=== PATIENT | female | born 1960 | race Caucasian/White ===

== ENCOUNTER 2021-05-11 09:26 | Outpatient (RCR) | payer OTHER, SELFPAY ==
[2021-05-11 10:08] VITALS: BP 135/65; PULSE 85; RESP 16; TEMP 36.6; BMI 38.0
--- NOTE | 2021-05-11 14:39 | HP.PCM_ITS ---
History of Present Illness Date of Service: 05/11/21 Chief Complaint: nonhealing wound left breast History of Wound: Jaja is a 60 yo female that woke up with a wound to her left breast in November 2020 that she feels was a result from a cat scratch and has healed and broke open several times over the last several months but recently opened and drained purulent drainage in April 2021 and was treated with Augmentin and she was referred to the wound center for treatment. The wound is currently not open but has started to swell like it has in the past when it has broke open. She has been using triple antibiotic ointment to the wound daily. [facility] Home Medications Lactobacillus acidophilus [Acidophilus] 10 mg PO DAILY 05/11/21 [History Last Taken Unknown] albuterol sulfate [Ventolin HFA] 2 INHALATION PRN 05/11/21 [History Last Taken Unknown] amlodipine 5 mg PO DAILY 05/11/21 [History Last Taken Unknown] atorvastatin 40 mg PO QHS 05/11/21 [History Last Taken Unknown] budesonide-formoterol [Symbicort] 2 puff INHALATION BID 05/11/21 [History Last Taken Unknown] cholecalciferol (vitamin D3) [Vitamin D3] 125 mcg PO DAILY 05/11/21 [History Last Taken Unknown] citalopram 20 mg BID 05/11/21 [History Last Taken Unknown] cyclobenzaprine 10 mg PO TID PRN 05/11/21 [History Last Taken Unknown] diclofenac sodium 75 mg PO BID 05/11/21 [History Last Taken Unknown] ferrous sulfate 325 mg PO BID 05/11/21 [History Last Taken Unknown] hydrochlorothiazide 25 mg PO DAILY 05/11/21 [History Last Taken Unknown] ipratropium-albuterol 3 ml INHALATION Q4H PRN MDD 2 05/11/21 [History Last Taken Unknown] lisinopril 10 mg PO DAILY 05/11/21 [History Last Taken Unknown] metformin 1,000 mg PO BID 05/11/21 [History Last Taken Unknown] omeprazole 20 mg PO DAILY 05/11/21 [History Last Taken Unknown] pregabalin 50 mg PO DAILY 05/11/21 [History Last Taken Unknown] pregabalin 50 mg PO QHS 05/11/21 [History Last Taken Unknown] vitamin E 400 unit PO DAILY 05/11/21 [History Last Taken Unknown] Allergy/AdvReac Type Severity Reaction Status Date / Time methylprednisolone Allergy Other Verified 05/11/21 12:31 tramadol [From Ultram] Allergy Itching Verified 05/11/21 12:31 gabapentin AdvReac Other Verified 05/11/21 12:30 Social History Smoking Status: Current every day smoker ROS Constitutional Constitutional: Denies chills, fatigue, fever(s) or headache(s) Eyes Eyes: Denies blurry vision or loss of vision Cardiovascular Cardiovascular: Denies chest pain, dyspnea or palpitations Respiratory/Chest Respiratory/Chest: Denies cough or wheezing Gastrointestinal Gastrointestinal: Denies abdominal pain, diarrhea, nausea or vomiting Musculoskeletal Musculoskeletal: Reports arthralgias Integumentary Integumentary: Reports erythema and wounds Neurologic Neurologic: Denies dizziness or headache(s) Psychiatric Psychiatric: Denies anxiety or depression Vital Signs Vital Signs Vital Signs: 05/11/21 10:08 Temperature 97.8 F Temperature Source Temporal Pulse Rate 85 Respiratory Rate 16 Blood Pressure 135/65 H Blood Pressure Mean 88 Blood Pressure Source Monitor Blood Pressure Position Sitting Blood Pressure Location Right Arm Oxygen Delivery Method Room Air Weight Weight: 107.048 kg Body Mass Index (BMI) 38.0 Physical Exam Const alert, oriented x3 and no apparent distress General Appearance: cooperative and comfortable HEENT normocephalic and head/scalp atraumatic Head and Scalp: normal to inspection and normocephalic Mouth: oral and palatal mucosa normal Neck no lymphadenopathy Chest Chest: scars Breast/Axilla Palpation: no axillary lymphadenopathy Nipple/Areola: nipples/areola normal Resp normal respiratory effort Effort and Inspection: able to speak in complete sentences Cardio regular rate and regular rhythm GI Inspection: central obesity Extremity no clubbing, cyanosis or edema Skin General Skin Exam: erythema and scars Wounds: wounds noted Wound Narrative: left medial breast as in clinical panel - no open wound or palpable abscess or induration or fluctuance Psych mental status grossly normal, thought process normal and cooperative Debridement Note Debridement Note Wound debrided: left medial breast Laterality: Left No debridement was completed: No debridement was completed today (no open wound/ulcer) Post-Debridement Measurements and Additional Note: Post-Debridement Measurements/Treatment WC - Nurse 1 - General Ulcer Assessment Start: 05/11/21 10:07 Freq: Status: Active Protocol: [email or web address] Activity Type Activity Date Activity User E-Sign Co-Sign Detail Recorded Client Recorded Date Recorded By Document 05/11/21 10:08 [id number] 05/11/21 10:14 05/11/21 10:08 WC - Today's Visit Information Type of service Initial Visit Arrival Mode Ambulatory Transfer Assistance None Accompanied by fiance Patient Identification Verified (Name & Yes ) Patient Requires Transmission-Based No Precautions Safety Precautions NA Height and Weight Height 5 ft 6 in Weight 107.048 kg Weight in Pounds 236.0 lbs Weight Measurement Method Stated by Patient Body Mass Index (BMI) 38.0 BMI Classification Obese BSA - Danielle 2.15 Vital Signs Temperature (97.8 F-99.1 F) 97.8 F Temperature Source Temporal Pulse Rate (60-100) 85 Pulse Location Monitor Respiratory Rate (12-18) 16 Respiratory rate source Observation Oxygen Delivery Method Room Air Blood Pressure (90/60-120/80) 135/65 H Blood Pressure Mean 88 Source Monitor Position Sitting Blood Pressure Location Right Arm Pain Scale: 0-10 Numeric Is Patient Pain Free? Yes Communication Assessment Preferred language Tamazight Dynamotor Repairer Required No Able to Read No Able to Write No Communication Tools None Caregiver Communication Skills No Impairment Impairment Right Hearing Abillity Normal Left Hearing Abillity Normal Visual Assistive Devices Glasses Teaching Assessment Preferences Verbal,Written, Audio/Visual, Demonstration Barriers to Learning None Readiness To Learn Excellent Willingness to Engage in Self Management High Activies Readiness to Engage in Self Management High Activities Anxiety Level Calm Cooperation Cooperative Perception Coherent Interest in Health Problem Asks Questions Education Importance Acknowledges Need Smoking Status Current every day smoker Is Patient Diabetic Yes Functional Assessment Recent Decline in Ability to Perform Denies Any Declines Assistive Device With Patient No Culture/Scientology/Welder/Fitter Cultural/Scientology Needs that may affect No Treatment Plan Would you allow our hospital daily release and dupe printer to No meet you for the purpose of spiritual/ emotional support? Welder/Fitter to contact place of [facility] No - Nurse 1 - General Ulcer Measurement Start: 05/11/21 10:07 Freq: Status: Active Protocol: Activity Type Activity Date Activity User E-Sign Co-Sign Detail Recorded Client Recorded Date Recorded By Document 05/11/21 10:08 [id number] 05/11/21 10:14 05/11/21 10:08 Wound Center Nurse 1 Lower Limb Edema Present No WC - Nurse 2 - General Ulcer CM Notes Start: 05/11/21 10:07 Freq: Status: Active Protocol: Activity Type Activity Date Activity User E-Sign Co-Sign Detail Recorded Client Recorded Date Recorded By Document 05/11/21 10:23 MW [id number] 05/11/21 10:31 MW 05/11/21 10:23 Wound Center Nurse 2 #1 left breast abscess -Time 10:30 -Correct Patient Yes -Correct Side, Site, Position Yes -Correct Procedure Yes -Procedure Performed No -Post Debridement (cm) - Length 0.1 -Post Debridement (cm) - Width 0.1 -Post Debridement (cm) - Depth 0.1 -Total Square (Post) (cm) 0.01 -Tunneling No -Undermining/Tunneling No -Circular Undermining No -Wound/Ulcer Outcome Not Healed Pain Scale: 0-10 Numeric Is Patient Pain Free? Yes WC - Nurse 3 - General Ulcer D/C NN Start: 05/11/21 10:07 Freq: Status: Active Protocol: Activity Type Activity Date Activity User E-Sign Co-Sign Detail Recorded Client Recorded Date Recorded By Document 05/11/21 10:33 MW [id number] 05/11/21 10:41 MW 05/11/21 10:33 Wound Care Nurse 3 #1 left breast abscess -Ulcer Cleansing Not Cleansed -Foul Odor after Cleansing No -Negative Pressure Wound Therapy N/A -Other Dressing silver sulfadine 1% cream -Primary Dressing Covered/Secured with Dry Gauze, Secured with Tape Pain Scale: 0-10 Numeric Is Patient Pain Free? Yes Teaching: Wound Center Dressing Your Wound -Person Taught Patient,Family -Teaching Method Discussion -Response to teaching Verbalize understanding WC - Visit Discharge Discharge Condition Stable Ambulatory Status Ambulatory Transportation Private Auto Accompanied by renzo Medication Reconcilliation completed & No provided to patient/care provider Clinical Summary of Care Provided Yes Assessment/Plan Assessment/Plan (1) Diabetes: CODE(S): E11.9 - Type 2 diabetes mellitus without complications QUALIFIERS: Diabetes mellitus complication detail: with other skin ulcer Diabetes mellitus complication status: with skin complications Diabetes mellitus machine long goods helper insulin use: without care home use Diabetes mellitus type: type 2 Qualified Code(s): E11.622 - Type 2 diabetes mellitus with other skin ulcer (2) Cat scratch: CODE(S): W55.03XA - Scratched by cat, initial encounter (3) Nonhealing nonsurgical wound: CODE(S): T14.8XXA - Other injury of unspecified body region, initial encounter (4) Open wound of left female breast: CODE(S): S21.002A - Unspecified open wound of left breast, initial encounter QUALIFIERS: Encounter type: subsequent encounter Qualified Code(s): S21.002D - Unspecified open wound of left breast, subsequent encounter PLAN: Jaja was seen and evaluated today at the wound center for a nonhealing wound of her left breast. There currently is no drainage but it waxes and wanes per the patient. US was ordered to evaluate for any underlying abscess or fistula tract. Advised her to use silvadene and gauze to the area once daily and to call if it does start draining and would have her come in for wound culture. She agrees with above plan. Labs also ordered to evaluate her for diabetes and her nutrition. She will call if increased pain, bleeding, drainage, odor, fever or chills. F/U in 3 weeks or sooner if needed.
== END 2021-05-17 23:59 | disposition home or self-care (01) ==
LOC: WC 09:26
PROVIDERS: PCP Nurse Practitioner Family; Visit Provider Family Medicine
DX: T14.8XXA Other injury of unspecified body region, initial encounter (principal); E11.622 Type 2 diabetes mellitus with other skin ulcer; S21.002D Unspecified open wound of left breast, subsequent encounter; W55.03XD Scratched by cat, subsequent encounter; F17.200 Nicotine dependence, unspecified, uncomplicated
CPT/HCPCS: 99203; G0463